=== PATIENT | male | born 1935 | race Caucasian/White ===

== ENCOUNTER → 2017-01-23 | Outpatient (CLI) | payer MEDICARE, BC ==
[~2017-01-23] MED LIST: ALPRAZOLAM PO; AMBIEN PO; ARICEPT PO; AVODART0.5 MG PO; CALCIUM 600 + D1 TA1 PO; CARAFATE1 GM PO; CELEXA PO; CENTRUM SILVER PO; CLONIDINE PO; CLOPIDOGREL75 MG PO; FLONASE16 GM; FOLIC ACID PO; FUROSEMIDE40 MG PO; IRON325 ( 652 PO; LIBRIUM PO; MACRODANTIN PO; METFORMIN PO; NEURONTIN100 MG PO; NOVOLIN R100 U/ML INJ; PLAVIX PO; PROAIR HFA8.5 GM INH; PROTONIX PO; REMERON15 MG PO; SLOW-MAG64 MG PO; THIAMINE HCL100 MG PO; TRAZODONE PO; [UNRECOGNIZED DRUG - REMARK]
--- NOTE | ~2017-01-23 | CT14 ---
[facility] A Service of [facility] RADIOLOGY TEXT RESULTS PATIENT: ARIC STUART LOCATION: [facility] : 33 UNIT #: [id number] AGE: [address]: Amalia Salgado SEX: M ORDER DR: [id number] [facility] [address] [address] [id number] O MR#: [id number] [facility] #: [id number] NAME: ARIC STUART. : 1935 SEX: M STUDY DATE/TIME: 01/23/2017 11:45 UNIT: [facility] ROOM: STUDY DESCRIPTION: CT Angio Abdomen and Pelvis Attending Physician: Amalia Salgado A.P.R.N. Referring Physician: Amalia Salgado A.P.R.N. Ordering Physician: Amalia Salgado A.P.R.N. Primary Care Physician: Daniel Schmitz M.D. MEDICAL IMAGING REPORT This report is preliminary unless electronic signature is present EXAM CT angiogram of the abdomen and pelvis with bilateral lower extremity runoff on patient. INDICATION Peripheral arterial disease. Patient reports poor circulation in the right leg for 1 1/[address] images were obtained from the dome of the diaphragm through both lower extremities following the administration of intravenous contrast material. Following this, 3-D reformatted images were obtained. This CT exam was performed with one or more of the following radiation dose reduction techniques: automatic exposure control, adjustment of mA and/or kV according to patient size, and iterative reconstruction. FINDINGS Images through the lung bases demonstrates some background emphysematous changes. 5 mm nodule is seen at the right lung base. There is also some linear scarring seen within the right lower lobe. There are also some pleural-based areas of thickening within the left lower lobe and no additional nodule is seen within the lingula measuring about 1 cm in size. Potentially, this may simply reflect an area of scarring but short-term followup is suggested. Patient has atherosclerotic involvement of the thoracic aorta with areas of ulcerated plaque seen. Patient does have a separate origin of the left gastric artery from the abdominal aorta which is a normal anatomic variant. There is probably some mild narrowing at its origin. Patient has some additional plaque seen at the origin of the celiac axis. I think this results in some additional mild narrowing. Plaque is seen involving the proximal superior mesenteric artery, although I do not think that [facility] A Service of [facility] RADIOLOGY TEXT RESULTS PATIENT: ARIC STUART LOCATION: [facility] : 34 UNIT #: [id number] AGE: [address]: Amalia Salgado SEX: M ORDER DR: really leads see any significant stenosis. More extensive plaque is seen within the mid thigh SMA, probably resulting in narrowing in the range from about 30% to 40%. Patient does have a partially replaced right hepatic artery to the superior mesenteric artery which a normal anatomic variant. There are 2 right renal arteries and a single left renal artery. There is stenosis involving the proximal right renal artery. This is estimated to be in the range of about 50%. Extensive ulcerated plaque is seen within the abdominal aorta at the level of the renal arteries. Patient does appear to have mobile appearing pedunculated atheromatous plaque. The inferior mesenteric artery is patent, although there is probably some narrowing at its origin. 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 This is located at the bifurcation. 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 There is reconstitution of the mid-left internal iliac artery and a small aneurysm is noted arising from one of the branches measuring about 7 mm in size, the left external iliac artery is also occluded as is the left common femoral artery. There is stenosis seen at the origin of the right internal iliac artery which is associated with poststenotic dilatation measuring up to 1.3 cm. An additional area of dilatation is seen more distally measuring up to about 1 cm. There is severe narrowing seen at the origin of the right external iliac artery with only a tiny thread of contrast seen within the proximal right external iliac artery. There is reconstitution of its midportion, but it is severely diseased with probably some intermittent occlusions present. Right common femoral artery is patent with some eccentric plaque noted. The patient does have some mild narrowing at the origin of the right profunda femoris artery but it is patent. Right superficial femoral artery is extremely diminutive. It was initially patent at its origin but then probably occludes within the proximal thigh. Full assessment of patency is difficult due to severe calcification but there appears to be distal reconstitution at the level of Nimesh canal. The right popliteal artery is patent, although it does demonstrate multifocal disease with an area of moderate narrowing within the popliteal fossa and diffuse narrowing seen within the infrapopliteal segment. Right anterior tibial artery occludes proximally and then shows only intermittent opacification of the right posterior tibial artery. It is occluded at its origin but does reconstitute within the proximal calf and then continues on to the foot. Right peroneal artery I am not convinced I can see throughout its course. The left profunda femoris artery is patent but does appear to have some significant disease at its origin. Left superficial femoral artery is patent at its origin but is extremely small in caliber and then occludes within the proximal thigh. There is reconstitution of the popliteal artery within the above-knee segment, although it is somewhat small in caliber with some mild narrowing seen extending from the infrapopliteal segment to the tibioperoneal trunk. Left anterior tibial artery is occluded throughout its course. The patient's left posterior tibial and [facility] A Service of [facility] RADIOLOGY TEXT RESULTS PATIENT: ARIC STUART LOCATION: [facility] #: [id number] : 33 UNIT #: [id number] AGE: [address]: Amalia Salgado SEX: M ORDER DR: peroneal arteries appear to continuous to the foot. There is a cirrhotic morphology to the liver, although I do not see any focal hepatic lesions. Gallbladder is contracted. Spleen appears unremarkable. Stomach and proximal small bowel are within normal limits. Adrenal glands appear unremarkable. Pancreas is atrophic. Kidneys appear unremarkable. There is no evidence of mechanical bowel obstruction or bowel ischemia. There is colonic diverticulosis without any evidence of diverticulitis. Prostate gland is contains dystrophic calcifications, left inguinal hernia does contain some bowel but there is no evidence of obstruction or incarceration. There is lumbar scoliosis with convexity to the left. Patient does appear to be osteoporotic. There are postsurgical changes involving the right hip. Old right inferior pubic ramus fracture is seen. The patient has changes of right hip arthroplasty. In contrast to the prior examination from June 2016, femoral component now appears to be extending externally out from the lateral border of the proximal right femur. Orthopedic consultation is recommended as this is a new finding. Patient does have atrophy throughout the right lower extremity and there is right lower extremity edema extending from the knee inferiorly. Patient is also noted to have some mild edema seen around the distal calf. IMPRESSION 1. Patient has extensive atherosclerotic involvement of the abdominal aorta. This does result in narrowing at the origin of the celiac axis, as well as superior mesenteric artery. The patient is also noted to have moderate stenosis of the proximal right renal artery. 2. 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 3. 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 There is also aneurysmal dilatation of the right internal iliac artery. The patient's right external iliac artery is heavily diseased and shows only intermittent opacification. 4. 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 Left external iliac artery is occluded. 5. Severe atherosclerotic involvement of the right lower extremity. The patient does have some reconstitution of the right profunda femoris artery. Right superficial femoral artery is occluded proximally with distal reconstitution. Right popliteal artery does remain patent but shows segmental disease distally. The patient's right posterior tibial artery reconstitutes within the proximal calf and then continues on to the foot but the right anterior tibial and peroneal arteries appear to be occluded. 6. Patient also has severe left lower extremity atherosclerotic disease. There is reconstitution of the left superficial femoral and profunda STS. [facility] A Service of [facility] RADIOLOGY TEXT RESULTS PATIENT: ARIC STUART LOCATION: [facility] #: [id number] : 33 UNIT #: [id number] AGE: [address]: Amalia Salgado SEX: M ORDER DR: femoris arteries both appear to be somewhat small in caliber. There is almost immediate occlusion of the left superficial femoral artery with reconstitution of the above-knee segment of the left popliteal artery. The patient's left posterior tibial and peroneal arteries appear to be continuous to the foot with the left anterior tibial artery occluded at its origin. 7. Background emphysematous changes. There are several areas of noncalcified pulmonary nodules. Given background emphysematous changes, I would suggest short-term CT followup in 3 months to document stability. 8. This patient has extensive orthopedic hardware seen within the right hip and proximal femur. In contrast to an exam from June 25, 2011, the femoral component of the patient's right hip arthroplasty appears to be directed out of the proximal right femur. Orthopedic consultation is recommended. There also appeared to be postsurgical changes involving the proximal right fibula which I think may have been partially resected. 9. Asymmetric edema seen within both lower extremities, right greater than left. 10. Cirrhotic morphology to the liver. Please see the body of the report for other additional incidental findings. Dictated by... Nevaeh Godinez M.D. THIS IS AN ELECTRONICALLY VERIFIED REPORT Nevaeh Godinez M.D. at 01/26/2017 4:59 PM VELIA/frank TD: 01/26/2017 14:50 JOB #: [id number] MEDICAL IMAGING REPORT Page 1 of 1 COPY
[2017-01-23 11:56] LABS: POC - CREATININE 0.79 mg/dL (0.64-1.27); POC - GFR >60.0 mL/min (>60)
== END | disposition home or self-care (01) ==
LOC: CCAT 10:29 → SCT 11:00
PROVIDERS: Registered Nurse
DX: I73.9 Peripheral vascular disease, unspecified (principal); I70.0 Atherosclerosis of aorta; I74.09 Other arterial embolism and thrombosis of abdominal aorta; I72.3 Aneurysm of iliac artery; I74.5 Embolism and thrombosis of iliac artery; I74.3 Embolism and thrombosis of arteries of the lower extremities; K74.60 Unspecified cirrhosis of liver
CPT/HCPCS: 73706; 74174; 82565; Q9967